=== PATIENT | female | born 1975 | race Caucasian/White ===

== ENCOUNTER → 2017-08-15 | Outpatient (CLI) | payer BC ==
[~2017-08-15] VITALS: Ht 154.9 cm; Wt 79.4 kg
[~2017-08-15] MED LIST: ARAVA20 MG; ASPIRIN325; AUGMENTIN 875875 MG PO; EFFEXOR 5050 MG/1 T1 PO; HYDROCODON-ACE1 EAC7 PO; NORCO 5-325 TA1 EACH PO; NORFLEX100 MG PO; OMEPRAZOLE20 M2; PERCOCET 5-3251 EACH PO; PHENERGAN 25 MG25 M1 PO; PREDNISONE50 MG PO; TORADOL 10 MG T10 MG PO; TRAMADOL 50 MG50 MG PO
--- NOTE | ~2017-08-15 | CATHLAB ---
[facility] [address] [place] [address] INVASIVE PROCEDURE REPORT Name: JOCELINE RUIZ Room #: REG Vaughn#: [id number] Admission: 08/15/17 Attend Phys: Siddhartha Villanueva Discharge: Date of : 73 Date of Service: 09/17/17 0934 Report #: [id number] THIS REPORT FOR: //name// APPROVED REPORT Patient Details Patient Status: Out-Patient Room #: The patient is a 41 year-old female Event Personnel Siddhartha Montanez Potato Loader, Santiago Delgado RN, Henrietta Allen, Demetrius Nelson Monitor Procedures Performed Art Access - R femoral artery* Left Heart Cath w/or w/o Coronaries [id number] [facility] [id number] Initial Mod Sed Same Phys/QHP 5y [id number] Hemostasis with Manual pressure, supervision of conscious sedation Indication Positive stress test, Chest pain Procedure Narrative The Right Groin^ was infiltrated with 1% Lidocaine subcutaneous anesthesia. A PINNACLE 4FR Sheath #[id number] sheath was inserted into the RFA^. Coronary angiography was performed using coronary diagnostic catheters. The right coronary system was accessed and visualized with a JR4 catheter. The left coronary system was accessed and visualized with a JL4 catheter. Left ventricular/Aortic Valve gradient assessed via catheter pullback. Hemostasis was obtained with manual pressure following sheath removal without any complications. The patient tolerated the procedure well and there were no complications associated with the procedure. There was no hematoma. Intraoperative Conscious Sedation Sedation start time: 11:23 Case end Time: 11:37 Versed 2 mg Fluoro Time: 3.00 minutes Dose: DAP 2179.90 cGycm2 489 mGy Contrast Type and Amount: Omnipaque 40 ml Coronary Angiography [facility] [address] [place] [address] INVASIVE PROCEDURE REPORT Name: JOCELINE RUIZ GIA Room #: REG [facility].#: [id number] Admission: 08/15/17 Attend Phys: Siddhartha Villanueva Discharge: Date of : 73 Date of Service: 09/17/17 0934 Report #: [id number] The patient's coronary anatomy is right dominant. Diagnostic Cath Left Main Left main is of normal origin and moderate to large caliber bifurcates left anterior descending left circumflex free of high-grade disease LAD Moderate caliber type II vessel which has luminal irregularities especially in its distal third. It gives rise to diagonal and septal branches are quite small in size but free of high-grade disease. There is no significant obstructive lesion Diagonal 1 Small-caliber nonobstructed vessels Circumflex Moderate caliber nondominant vessel which courses into the lateral wall as a marginal branch free of high-grade disease. Right Coronary Moderate to large caliber vessel of normal origin courses posteriorly. At the crux of the heart gives her some small to moderate caliber posterior descending artery has luminal irregularities but no high-grade lesions. The distal RCA is a small caliber posterolateral branch with luminal irregularities R PDA Small to moderate caliber vessel which is free of high-grade disease although does have luminal irregularities Left Ventriculography Left Ventriculography was not performed. Hemodynamics The aortic pressure is 141/80 mmHg with a mean of 104 mmHg. The left ventricular pressure is 142/14 mmHg with a mean of mmHg. The left ventricular end diastolic pressure is 27 mmHg. Conclusion 1. Essentially normal coronary arteries with only mild luminal irregularities noted 2. Normal hemodynamics Recommendations Cardiac Risk Reduction Program <ELECTRONICALLY SIGNED> By: Siddhartha Montanez MD 09/17/1734 3 3 Siddhartha Montanez MD /INF
[2017-08-15 08:45] LABS: HEMATOCRIT 33.1 % (37.0-47.0); HEMOGLOBIN 11.3 gm/dL (12.0-15.0); MCH 32.3 pg (26.0-34.0); MCHC 34.1 g/dL (28.0-37.0); MCV 94.6 fL (80.0-100.0); RBC 3.5 mil/uL (4.20-5.00); WBC 4.5 thou/uL (4.0-11.0)
[2017-08-15 08:53] LABS: CALCIUM 8.9 mg/dL (8.5-10.1); CREATININE 0.7 mg/dL (0.6-1.0); POTASSIUM 3.6 mmol/L (3.5-5.1)
[2017-08-15 08:56] LABS: PROTIME 10.2 Seconds (9.3-11.4)
[2017-08-15 08:57] VITALS: BP 100/66
== END | disposition home or self-care (01) ==
LOC: CATH 08:02
PROVIDERS: Internal Medicine
DX: R94.39 Abnormal result of other cardiovascular function study (principal); G47.33 Obstructive sleep apnea (adult) (pediatric); F17.210 Nicotine dependence, cigarettes, uncomplicated; F41.8 Other specified anxiety disorders; Z90.49 Acquired absence of other specified parts of digestive tract; Z90.710 Acquired absence of both cervix and uterus; Z79.899 Other long term (current) drug therapy; Z98.890 Other specified postprocedural states; Z98.84 Bariatric surgery status; Z88.8 Allergy status to other drugs, medicaments and biological substances